=== PATIENT | male | born 1980 | race Caucasian/White ===

== ENCOUNTER 2016-08-17 08:02 | Day surgery (SDC) | payer MEDICARE, MEDICAID ==
[~2016-08-17] VITALS: Ht 175.3 cm; Wt 75.9 kg
[2016-08-17] VITALS (17 sets, daily range): BP systolic 120–148; BP diastolic 79–99; PULSE 75–100; RESP 9–24; O2SAT 97–100
[~2016-08-17 08:02] MED LIST: AMT25T PO; BACL10TA PO; CeFAZolin Inj 2 GM in IV Premix 1 EACH IV ONE; MINO100T PO; PARO20TA5 PO; RIFA300C4 PO; TOPI-31 PO; hydrocodone
[2016-08-17] MEDS ORDERED: fentaNYL-PF 50 mCg/mL 2 mL Inj ONE (08:03)
[2016-08-17] MEDS ORDERED: Ondansetron 2 mg/mL 2 mL Inj ONE (08:03)
[2016-08-17] MEDS ORDERED: Propofol 10,000 mCg/mL 20 mL Inj ONE (08:03)
[2016-08-17] MEDS: Lactated Ringer's 1,000 ML IV SCH ×2 (08:05→10:32)
[2016-08-17] MEDS ORDERED: CeFAZolin 2 Gm/50 mL D5W Duplex Bag IV ONE (08:29)
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
[2016-08-17] MEDS ORDERED: Bupivacaine-MPF 0.5% W/EPI 30 mL Inj INFILTRATE ONE (10:31)
[2016-08-17] MEDS ORDERED: Lidocaine 1%-Epi 1:100,000 20 mL Inj INJ ONE (10:31)
[2016-08-17] MEDS ORDERED: Lactated Ringer's 1,000 ML IV SCH (12:56)
[2016-08-17] MEDS ORDERED: Lactated Ringer's 500 ML IV PRN (12:56)
[2016-08-17] MEDS ORDERED: EPHEDrine Sulfate 50 mg/mL Inj IM PRN (13:00)
[2016-08-17] MEDS ORDERED: hydrOXYzine Inj 25 MG/1 mL SDV IM PRN (13:00)
[2016-08-17] MEDS ORDERED: EPHEDrine Sulfate 50 mg/mL Inj IVPUSH PRN (13:00)
[2016-08-17] MEDS ORDERED: Labetalol 5 mg/mL 4 mL Inj IV PRN (13:00)
[2016-08-17] MEDS ORDERED: Dexamethasone 4 mg/mL Inj IVPUSH PRN (13:00)
[2016-08-17] MEDS ORDERED: hydrALAZINE 20 mg/mL Inj IVPUSH PRN (13:00)
[2016-08-17] MEDS ORDERED: Phenylephrine 10,000 mCg/mL Inj IVPUSH PRN (13:00)
[2016-08-17] MEDS ORDERED: HYDROmorphone 1 mg/mL Inj IVPUSH PRN (13:00)
[2016-08-17] MEDS ORDERED: Ondansetron 2 mg/mL 2 mL Inj IVPUSH PRN (13:00)
[2016-08-17] MEDS ORDERED: Atropine 0.4 mg/mL Inj IVPUSH PRN (13:00)
[2016-08-17] MEDS ORDERED: HYDROmorphone 1 mg/mL Inj ONE (13:12)
--- NOTE | 2016-08-17 13:16 | PCM.ANEP1 ---
Post Anesthesia Phase 1 PACU Phase 1 Assessment Vital Signs Vital Signs Date Time Temp Pulse Resp B/P Pulse Ox O2 Delivery O2 Flow Rate FiO2 08/17/16 08:43 36.2 77 12 123/79 98 Room Air 08/17/16 08:25 36.2 77 12 123/79 98 Room Air Anesthetic Administered: GA Level of Alertness: Awake, talking TORRES's with Equal Strength: Yes Pain: Yes Nausea or Vomiting: No Oxygen Delivery: Room Air Lungs: Normal Air Movement Alexi Longoria MD Aug 17, 2016 13:16
[2016-08-17] MEDS: fentaNYL-PF 50 mCg/mL 2 mL Inj IVPUSH PRN ×2 (13:27→13:59)
[2016-08-17] MEDS ORDERED: HYDROcodone-APAP 5-325 mg Tablet PO ONE (15:24)
[2016-08-17] MEDS ORDERED: HYDROcodone-APAP 5-325 mg Tablet PO PRN (15:45)
--- NOTE | 2016-08-18 13:03 | OP ---
[address] [address] OPERATIVE REPORT PATIENT: SILVERIO HARO : 1980 MR#: [id number] ADMIT: 08/17/2016 JOB ID: [id number] DATE OF SURGERY: 08/17/2016 SURGEON: Griffin Prakash DPM. PREOPERATIVE DIAGNOSIS(ES): 1. Chronic ulceration of the right plantar heel. 2. 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 POSTOPERATIVE DIAGNOSIS(ES): 1. Chronic ulceration of the right plantar heel. 2. 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 PLANNED PROCEDURE: 1. Fascia and cutaneous flap closure of right heel with removal of bony prominence and release of plantar fascia. 2. Transfer of tibialis posterior tendon from anatomic origin to insertion of the Achilles tendon for augmentation and reduction of deforming force. ANESTHESIA: General with local block. HEMOSTASIS: None. ESTIMATED BLOOD LOSS: Less than 10 mL. COMPLICATIONS: None. PROCEDURE AND FINDINGS: The patient was brought to the operating room and placed on the table in supine position. He was placed under general anesthesia. Afterwards, I performed incisional and local block with 2% lidocaine with epinephrine. Right lower extremity was prepped and draped in normal sterile surgical manner. Attention was directed to the plantar aspect of the right heel where the existing wound was debrided to assess adjacent tissues. I was able to plan the flap within skin lines and used a #10 scalpel to incise this through and through. A semilunar section of skin was removed. This revealed considerable bursa of approximately 2.5 cm x 1.5 cm x 1 cm in diameter. This was released from soft tissue and dissected free of the calcaneus. This was delivered from the table and sent for pathology exam. The underlying tissue appears heavily scarred, with discrete fascial plane. I dissected the periosteum away from the prominence, both directly observed and confirmed on live fluoroscopy. I then used a #12 osteotome and mallet to remove and to resurface that bony prominence, and to reestablish a more normal plantar surface contour. This was further remodeled with the lee rasp. Wound was copiously flushed with normal saline. I then closed periosteum with 3-0 Vicryl and packed the incision open. Attention was then directed to the medial side of the foot where a 1 cm incision was placed within skin lines to access the medial and central bands of the plantar fascia. This was just anterior and medial to the calcaneus. Incision was taken down bluntly to the plantar fascia, which was transected at a steep bias using a Treviño scissor. This allowed for partial release, without destabilization of the medial arch. The incision was irrigated and closed with horizontal suture of 3-0 Prolene. I then directed attention to the medial aspect of the ankle, where an incision was placed over the course of the tibialis posterior tendon. The dissection was taken down to the tendon using sharp and blunt dissection, carefully cauterizing and/or ligating any bleeders that were encountered. I was able to expose the trochlear surface of the tibia and the caliculus of origin for the deep deltoid ligament. The superficial deltoid was gently retracted. I then assessed the position of the foot in a maximally pronated attitude so as to estimate the length of tendon needed for ligamentous augmentation. Insertion of the tibialis posterior tendon was left intact, whereas I transected on a steep bias the tendon at the level of the medial malleolus. The proximal section was captured with a hemostat and left for further procedure. I then directed the distal segment toward the space between the superficial and deep deltoid ligaments. A 4.5 mm bone anchor was placed and the accompanying suture was used to fixate the distal tendon as an augmented spring and medial ligament to reduce likelihood of over-flattening of the foot. The tibialis posterior was then retracted back and tension was kept on the muscular component. I bluntly dissected from medial to lateral, just deep to the Achilles tendon over the calcaneus. An incision was placed on the lateral aspect, just anterior to the calcaneus, to access the proposed tendinous insertion. Another 4.5 mm bone anchor was implanted in the calcaneus on the dorsal lateral aspect. This was secured and found to be very tight within the cortex of the bone. I then directed attention to the tibialis posterior, directed through the posterior triangle, towards the insertion. The tendon was secured both to the anchor with the modified nail suture and then also plicated to the Achilles tendon with a Krackow type technique. The wounds were both copiously flushed with normal saline followed by closure of the fascial plane with 3-0 Vicryl and then subcutaneous retention sutures of same. The skin on the medial and lateral incisions was closed with a running subcutaneous 4-0 Vicryl. The plantar incision was then closed with a series of simple sutures of 2-0 Prolene over the fascial plane. These would be for strength to counteract potential weightbearing. The patient understands that this is to be strictly nonweightbearing postoperative. Dressings included Steri-Strips over tincture of benzoin, followed by Shah Silk, saline moistened gauze, dry gauze, Kerlix, and the posterior splint with modified Warner compression dressings. The digits maintained immediate CFT throughout the procedure as no tourniquet was applied. The patient tolerated the procedure and anesthetic well. POSTOPERATIVE PLAN: The patient understands that he is remain strictly nonweightbearing upon this limb. He will follow with me in the [facility] next Saturday. I will provide for him after-hours numbers and will be calling him over the weekend also to see how he is holding up. I anticipate the surgery will have successfully reduced the progression of his cavus deformity, resolved the chronic wound deficit, and restored plantar flexor strength with the transfer of the intact tibialis posterior to the neurologically compromise Achilles tendon. All of this was explained to the patient and his family. The patient will follow as above. My thanks to the anesthesia and surgical team for their expert assistance with this nice gentleman.
--- NOTE | 2016-08-20 06:55 | PCM.ANEP2 ---
Post Anesthesia Evaluation ASA/CMS Post Anesthesia VS in Patient's Normal Range?: Yes Resp Stable; Airway Patent?: Yes CV Function & Hydration Stable: Yes Mental Status Recovered?: Yes Pain control Satisfactory?: Yes N/V Control Satisfactory?: Yes Alexi Longoria MD Aug 20, 2016 06:55
--- NOTE | 2016-08-21 11:41 | PATH ---
SURGICAL PATHOLOGY Attending Physician:Griffin Prakash DPM CASE STATUS: Signed Out PATIENT NAME: SILVERIO HARO PID: [id number] : 1980 DATE COLLECTED:08/17/2016 21:07 SPECIMEN: 1: Bursa 2: Bone, Fragments (other than pathologic fracture) CLINICAL HISTORY: RIGHT HEEL WOUND RIGHT ACQUIRED CAVUS FOOT 1). BURSA RIGHT CALCANEUS 2). BONE RIGHT CALCANEUS FINAL DIAGNOSIS: 1.BURSA RIGHT CALCANEUS: BENIGN FIBROVASCULAR AND ADIPOSE TISSUE CONSISTENT WITH BURSA, WITH PATCHY MILD CHRONIC INFLAMMATION. NO EVIDENCE OF NEOPLASIA. 2.BONE, RIGHT CALCANEUS: MULTIPLE BONE FRAGMENTS. NEGATIVE FOR OSTEOMYELITIS OR NEOPLASIA. ICD10 CODE M21.6X GROSS DESCRIPTION: The specimens are received in formalin, labeled with the patient's name, and sublabeled as the following: (1) bursa rt calcaneum; (2) bone calcaneus. (1) The specimen consists of a piece of masters-white shiny and rubbery tissue (3.5 x 1.8 x 1.2 cm). Section code: (1A) tissue, serially sectioned, petroleum products sales representative. (2) The specimen consists of multiple fragments of bone (1.3 x 0.5 x 0.3 cm in aggregate). The fragments are easily sliced with a scalpel. Section code: (2A) bone fragments. Specimen entirely submitted. Note: The bone fragments have been decalcified. 08/18/16 MICRO DESCRIPTION: See diagnosis. ICD-9 CODES: CPT CODES: 1: 69000 2: 24321, 80613 Electronically Signed Out Ifrah Linn MD [facility] [address], [place] [address] Technical component performed at [facility], [address] [place] [address] Ave[address], [place], [address]
[2016-12-13] MEDS ORDERED: OXYC1TAB24 PO (08:37)
[2016-12-13] MEDS ORDERED: SULF1TAB35 PO (08:37)
[2016-12-13] MEDS ORDERED: HYDR-3740 PO (08:37)
== END 2016-08-17 23:59 | disposition home or self-care (01) ==
LOC: SAS 08:02
PROVIDERS: ATTEND Podiatrist
DX: M21.6X1 Other acquired deformities of right foot (principal); L97.412 Non-pressure chronic ulcer of right heel and midfoot with fat layer exposed; G82.20 Paraplegia, unspecified; Z87.828 Personal history of other (healed) physical injury and trauma; Z86.14 Personal history of Methicillin resistant Staphylococcus aureus infection
CPT/HCPCS: 27691; 28119; 76000; 87070; 87075; 87186; 87205; J0690; J1170; J2175; J2250; J2405; J7120

== ENCOUNTER 2016-08-19 14:01 | Emergency (ER) | payer MEDICARE, MEDICAID ==
[~2016-08-19] VITALS: Ht 175.3 cm; Wt 71.4 kg
[~2016-08-19 14:01] MED LIST changes: -CeFAZolin Inj 2 GM in IV Premix 1 EACH IV ONE; -MINO100T PO; -RIFA300C4 PO
[2016-08-19 14:26] VITALS: BP 127/80; PULSE 99; RESP 16; O2SAT 98
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
[2016-12-13] MEDS ORDERED: SULF1TAB35 PO (08:37)
[2016-12-13] MEDS ORDERED: OXYC1TAB24 PO (08:37)
[2016-12-13] MEDS ORDERED: HYDR-3740 PO (08:37)
== END 2016-08-19 15:25 ==
LOC: SED 14:01
DX: Z48.01 Encounter for change or removal of surgical wound dressing (principal)

== ENCOUNTER 2016-12-14 07:32 | Day surgery (SDC) | payer MEDICARE, MEDICAID ==
[2016-12-14] VITALS (8 sets, daily range): BP systolic 106–126; BP diastolic 71–82; PULSE 60–78; RESP 11–21; O2SAT 95–100
[~2016-12-14] VITALS: Ht 177.8 cm; Wt 76.6 kg
[~2016-12-14 07:32] MED LIST changes: +CeFAZolin Inj 2 GM in IV Premix 1 EACH IV ONE; +HYDR-3740 PO; +OXYC1TAB24 PO; +SULF1TAB35 PO; -hydrocodone
[2016-12-14] MEDS ORDERED: Ondansetron 2 mg/mL 2 mL Inj ONE (07:33)
[2016-12-14] MEDS ORDERED: Propofol 10,000 mCg/mL 20 mL Inj ONE (07:33)
[2016-12-14] MEDS: Lactated Ringer's 1,000 ML IV SCH ×2 (07:44→09:42)
[2016-12-14] MEDS ORDERED: CeFAZolin Inj 2 gm / 50mL D5W IV ONE (08:07)
[2016-12-14] MEDS ORDERED: Lactated Ringer's 500 ML IV PRN (08:53)
[2016-12-14] MEDS ORDERED: Lactated Ringer's 1,000 ML IV SCH (08:53)
[2016-12-14] MEDS ORDERED: Dexamethasone 4 mg/mL Inj IVPUSH PRN (08:55)
[2016-12-14] MEDS ORDERED: Atropine 0.4 mg/mL Inj IVPUSH PRN (08:55)
[2016-12-14] MEDS ORDERED: EPHEDrine Sulfate 50 mg/mL Inj IVPUSH PRN (08:55)
[2016-12-14] MEDS ORDERED: Labetalol 5 mg/mL 4 mL Inj IV PRN (08:55)
[2016-12-14] MEDS ORDERED: Ondansetron 2 mg/mL 2 mL Inj IVPUSH PRN (08:55)
[2016-12-14] MEDS ORDERED: HYDROmorphone 1 mg/mL Inj IVPUSH PRN (08:55)
[2016-12-14] MEDS ORDERED: Phenylephrine 10,000 mCg/mL Inj IVPUSH PRN (08:55)
[2016-12-14] MEDS ORDERED: MetoCLOpramide 5 mg/mL 2 mL Inj IVPUSH PRN (08:55)
[2016-12-14] MEDS ORDERED: hydrALAZINE 20 mg/mL Inj IVPUSH PRN (08:55)
[2016-12-14] MEDS ORDERED: fentaNYL-PF 50 mCg/mL 2 mL Inj IVPUSH PRN (08:55)
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
[2016-12-14] MEDS ORDERED: Lidocaine 2%-Epi 1:100,000 20 mL Inj NERVEBLOCK ONE (09:44)
[2016-12-14] MEDS ORDERED: HYDROcodone-APAP 10-325 mg PO PRN (11:30)
--- NOTE | 2016-12-17 01:07 | OP ---
[address] [address] OPERATIVE REPORT PATIENT: SILVERIO HARO : 1980 MR#: [id number] ADMIT: 12/14/2016 JOB ID: [id number] DATE OF SURGERY: 12/14/2016 SURGEON: Griffin Prakash DPM PREOPERATIVE DIAGNOSIS(ES): 1. Failed orthopedic hardware of the right ankle. 2. Infection, abscess, and cellulitis of the right ankle. POSTOPERATIVE DIAGNOSIS(ES): 1. Failed orthopedic hardware of the right ankle. 2. Infection, abscess, and cellulitis of the right ankle. PLANNED PROCEDURE: 1. Removal of orthopedic hardware from right ankle. 2. Incision and drainage with pulse lavage of the right ankle. ANESTHESIA: Local with IV sedation. HEMOSTASIS: None. ESTIMATED BLOOD LOSS: Less than 5 cc. PROCEDURE AND FINDINGS: The patient is brought to the operating room and placed on the table in supine position. He was placed under LMA anesthesia. Afterwards, I performed a right medial ankle blockade with 2% lidocaine with epinephrine. The right lower extremity was prepped and draped in normal sterile surgical manner. Attention was directed to the right medial ankle where the previous hypertrophic incision along with the its adhesion and sinus tract were excised totally with 4 mm margins. The incision was then carried down to the medial malleolus using sharp and blunt dissection, carefully cauterizing and/or ligating any bleeders that were encountered. I was able to identify, secure and remove the soft tissue anchor and the accompanying suture. I then debrided all apparent necrotic and inflamed tissue from the surgical site. Pulse lavage was utilized to irrigate the area with a total of 3 L of gentamicin sulfate solution. After the wound site was found to be apparently clear of infection and hardware, I introduced a vessel loop drain just cephalic to the incision line. This was placed deep into the medial canal of the medial malleolus. The fascial plane was closed with an in-out 3-0 Prolene in a deep mattress. After deep closure was obtained, I closed the skin with a running interlocking 3-0 Prolene. The incision was dressed with saline-moistened gauze, dry gauze, and Kerlix and Kory bandage. The patient had immediate CFT throughout the procedure as no tourniquet was applied. He was transferred from the operating room in stable condition, having tolerated the procedure and anesthetic well. There were no complications. POSTOPERATIVE PLAN: The patient is to keep the surgical site clean, dry, and intact until I follow with him on Saturday in [facility]. I anticipate complete resolution of this problem once the drain is removed. I did also inform the patient that the drain may spontaneously egress due to movement. The patient is allowed to bear weight and ambulate on the foot with his brace and boot. His questions are answered. I provided after hours numbers and will call him over the weekend for interview. I anticipate complete resolution of the chronic and acute problems. My thanks to the expert assistance of the surgical team and Anesthesia.
== END 2016-12-14 23:59 | disposition home or self-care (01) ==
LOC: SAS 07:32
PROVIDERS: ATTEND Podiatrist
DX: T84.69XA Infection and inflammatory reaction due to internal fixation device of other site, initial encounter (principal); L03.115 Cellulitis of right lower limb; G60.8 Other hereditary and idiopathic neuropathies; F41.9 Anxiety disorder, unspecified; F12.90 Cannabis use, unspecified, uncomplicated; N31.9 Neuromuscular dysfunction of bladder, unspecified; Z87.828 Personal history of other (healed) physical injury and trauma
CPT/HCPCS: 10061; 20680; J0690; J2250; J2405; J7120

== ENCOUNTER 2017-01-06 05:06 | Emergency (ER) | payer MEDICARE, MEDICAID ==
[~2017-01-06] VITALS: Ht 175.3 cm; Wt 70.9 kg
[~2017-01-06 05:06] MED LIST changes: -CeFAZolin Inj 2 GM in IV Premix 1 EACH IV ONE; -OXYC1TAB24 PO
[2017-01-06 05:09] VITALS: BP 144/101; PULSE 91; RESP 16; O2SAT 100
[2017-01-06 06:00] VITALS: BP 155/97; PULSE 96; RESP 17; O2SAT 100
[2017-01-06] MEDS ORDERED: 0.9% Sodium Chloride 1,000 ML IV ONE (06:12)
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
[2017-01-06] MEDS ORDERED: Ondansetron 2 mg/mL 2 mL Inj IVPUSH ONE (06:15)
[2017-01-06 06:21] LABS: BASOPHILS % (AUTO) 0.2 % (0-3); EOSINOPHILS % (AUTO) 0.3 % (0-5); MONOCYTES % (AUTO) 3.5 % (4-12); Mean Corpuscular Hemoglobin 28.4 pg (27.0-35.0); Mean Corpuscular Volume 80.8 fL (81-100); NEUTROPHILS % (AUTO) 84.7 % (40-74); Platelet Count 345 bil/L (150-400)
[2017-01-06] MEDS ORDERED: LidocaineVisc 2%:Antacid 1:1 10 mL Syringe PO ONE (07:00)
[2017-01-06] MEDS ORDERED: Pantoprazole 4 mg/mL 10 mL Inj IVPUSH ONE (07:00)
[2017-01-06] MEDS ORDERED: MetoCLOpramide 5 mg/mL 2 mL Inj IVPUSH PRN (07:35)
[2017-01-06 08:25] LABS: APPEARANCE,URINE HAZY (CLEAR,HAZY); COLOR,URINE YELLOW (YELLOW); OCCULT BLOOD,URINE NEGATIVE (NEGATIVE); UROBILINOGEN,URINE NORMAL (NORMAL)
--- NOTE | 2017-01-06 08:51 | DRSVH ---
PROCEDURE: CT ABDOMEN AND PELVIS WITH CONTRAST ([id number]) INDICATIONS: abd pain - generalized TECHNIQUE: After the administration of intravenous contrast, 5 mm thick sections acquired from the diaphragm to the symphysis. 5 mm coronal and sagittal reformats were acquired. For radiation dose reduction, the following was used: automated exposure control, adjustment of mA and/or kV according to patient siz e. COMPARISON: None. FINDINGS: Image quality: Excellent. ABDOMEN: Lung bases: Lung bases are clear. Heart size is normal. Solid organs: Liver and spleen are normal in size and enhancement. Cholelithiasis-containing cholest cass. No CT evidence of acute cholecystitis.. Biliary system is non dilated. Pancreas enhances norm ally. No adrenal nodules. Kidneys demonstrate normal size and enhancement, without hydronephrosis. Peritoneum and bowel: Bowel loops demonstrate normal wall thickness and caliber. No free fluid or a ir. Normal appendix. Nodes and vessels: No retroperitoneal or mesenteric adenopathy by size criteria. Aorta and inferior vena cava are normal in size. Miscellaneous: No ventral hernias. PELVIS: Genitourinary: Mild lateral thickening.. Miscellaneous: No inguinal hernias or adenopathy. Bones: No suspicious bony lesions. Thoracolumbar spine postoperative change. IMPRESSION: 1. Mild bladder wall thickening with no discrete lesion. Please correlate for evidence of infection. 2. Cholelithiasis-containing cholesterol. No CT evidence of acute cholecystitis. Dictated by: Jamal Mitchell M.D. on 01/06/2017 at 8:46 Approved by: Jamal Mitchell M.D. on 01/06/2017 at 8:49
[2017-01-06] MEDS ORDERED: PANT40TA3 PO (09:07)
[2017-01-06 09:27] VITALS: BP 144/81; PULSE 88; RESP 14; O2SAT 98
== END 2017-01-06 09:28 | disposition home or self-care (01) ==
LOC: SED 05:06
DX: R10.13 Epigastric pain (principal); K29.20 Alcoholic gastritis without bleeding; F11.229 Opioid dependence with intoxication, unspecified; R11.2 Nausea with vomiting, unspecified; G82.22 Paraplegia, incomplete; F12.10 Cannabis abuse, uncomplicated; F19.10 Other psychoactive substance abuse, uncomplicated
CPT/HCPCS: 36415; 74177; 80053; 81000; 83690; 83735; 85025; 87077; 87086; 87088; 87186; 96361; 96374; 96375; 99285; J2270; J2405; J2765; J7030; Q9967